=== PATIENT | female | born 1945 | race Caucasian/White ===

== ENCOUNTER 2016-09-25 13:59 | Emergency (ER) | payer MEDICARE ==
[~2016-09-25] VITALS: Ht 154.9 cm; Wt 90.0 kg
[2016-09-25 14:04] VITALS: BP 171/83; PULSE 87; RESP 12; TEMP 98.2; O2SAT 96
== END 2016-09-25 23:10 | disposition left against medical advice (07) ==
LOC: NED 13:59
DX: Z53.21 Procedure and treatment not carried out due to patient leaving prior to being seen by health care provider (principal)
CPT/HCPCS: 99281